=== PATIENT | female | born 1975 | race Caucasian/White ===

== ENCOUNTER 2017-01-07 17:01 | Emergency (ER) | payer OTHER ==
[~2017-01-07] VITALS: Wt 61.0 kg
[2017-01-07] MEDS ORDERED: IBUPROFEN 600 MG TAB PO ONE ×2 (17:30)
--- NOTE | 2017-01-07 17:36 | ERD ---
ER Documentation Chief Complaint Date/Time DATE: 01/07/17 TIME: 17:33 Chief Complaint left ring finger stucked JORDI Comes to emergency department with a finger injury that occurred about 3 days ago, and then complains of a year and getting stuck on her left fourth digit. States that she was doing water sports and sprained the PIP joint, complains of swelling and pain. ROS All systems reviewed and are negative except as per history of present illness. PMhx/Soc Medical and Surgical Hx: pt denies Medical Hx Hx Alcohol Use: No Hx Substance Use: No Hx Tobacco Use: No Physical Exam Vitals Vital Signs Date Time Temp Pulse Resp B/P Pulse Ox O2 Delivery O2 Flow Rate FiO2 01/07/17 17:10 99.8 77 18 101/59 99 Physical Exam General: Well-developed, well-nourished. The patient appears in no acute distress. HEENT: Head is normocephalic, atraumatic. No scleral icterus. Neck: Supple. Nontender. Lungs: Clear to auscultation. Normal air movement. Heart: Regular rate and rhythm. S1 and S2 are normal. No murmurs, gallops, or rubs. Abdomen: Nondistended. Extremities: Tenderness and swelling at the PIP joint of the left fourth digit, there is swelling, there is a engagement rings seen on the left fourth digit. Capillary refill less than 2 seconds. Patient is able flex and extend his DIP, PIP and MCP joint. Sensation is distally intact. Neurologic: Alert and oriented 3. No focal deficits. Normal speech and gait. Skin: Normal turgor. No rash or lesions. Results 24 hrs Current Medications Medications (Trade) Dose Ordered Sig/Ivon Route PRN Reason Start Time Stop Time Status Last Admin Dose Admin Ibuprofen (Motrin) 600 mg ONCE ONCE PO 01/07/17 17:30 01/07/17 17:31 DC Ibuprofen (Motrin) 600 mg ONCE ONCE PO 01/07/17 17:30 01/07/17 17:31 DC 01/07/17 17:41 DIAGNOSTIC IMAGING REPORT Patient: HAIM BLUE : 1975 Age: 41 Sex: F MR #: [id number] DOS: 01/07/17 0946 Ordering MD: TONI OWENSC Location: [facility] Room/Bed: PROCEDURE: X-ray fourth finger of the left hand CLINICAL INDICATION: Finger injury. TECHNIQUE: 3 views fourth finger of the left hand COMPARISON: None FINDINGS: No acute fracture or dislocation. Soft tissues unremarkable. IMPRESSION: No acute fracture. RPTAT: [facility] Date Time Electronically viewed and signed by Madeleine Gruber Physician on 01/07/2017 19:15 RS/ CC: TONI OWENS PA-C Procedures/MDM ED course: She is given ibuprofen 600 mg and [place] for pain. Ring cutter was used to remove the ring off the left fourth digit. She was neurovascular intact and there were no complications from this process. Patient's left fourth digit was placed in middle finger splint. Splint Assessment: Neurovascularly intact post splint placement with good fit. Medical decision making: This is a 41-year-old female comes in with a left fourth digit injury that subsequently led to swelling in her fourth digit has a ring stuck, patient presents with a finger sprain, without evidence of tendon rupture, finger fracture, dislocation. Metal ring was able to be removed without any complications. Departure Diagnosis: Primary Impression: Finger sprain Additional Impression: Constrictive jewelry of finger Condition: Good TONI OWENS PA-C Jan 07, 2017 17:36
--- NOTE | 2017-01-07 19:15 | RADRPT ---
PROCEDURE: X-ray fourth finger of the left hand CLINICAL INDICATION: Finger injury. TECHNIQUE: 3 views fourth finger of the left hand COMPARISON: None FINDINGS: No acute fracture or dislocation. Soft tissues unremarkable. IMPRESSION: No acute fracture. RPTAT: [facility] Date Time Electronically viewed and signed by Madeleine Gruber Physician on 01/07/2017 19:15 RS/
[2017-01-07 19:35] VITALS: BP 105/65; PULSE 78; RESP 18; TEMP 98.4
== END 2017-01-07 19:35 | disposition home or self-care (01) ==
LOC: FTE 17:01
DX: S63.635A Sprain of interphalangeal joint of left ring finger, initial encounter (principal); S60.445A External constriction of left ring finger, initial encounter; W49.04XA Ring or other jewelry causing external constriction, initial encounter; Y92.9 Unspecified place or not applicable
CPT/HCPCS: 29130; 73140; Z7502; Z7610